=== PATIENT | male | born 1960 | race Caucasian/White ===

== ENCOUNTER → 2020-03-22 10:32 | Outpatient (BNVA) | payer MEDICARE, OTHER, SELFPAY | PROVIDERS: Family Provider Nurse Practitioner; Visit Provider Nurse Practitioner Family | DX: E55.9 Vitamin D deficiency, unspecified (principal); M05.79 Rheumatoid arthritis with rheumatoid factor of multiple sites without organ or systems involvement; Z79.899 Other long term (current) drug therapy; Z12.5 Encounter for screening for malignant neoplasm of prostate; Z13.6 Encounter for screening for cardiovascular disorders | CPT/HCPCS: 80053; 80061; 81003; 82306; 83036; 84443; 85025; G0103 ==

== ENCOUNTER 2021-02-15 16:23 | Inpatient (IN) | payer MEDICARE, OTHER, SELFPAY ==
[2021-02-15] VITALS (18 sets, daily range): BP systolic 102–131; BP diastolic 67–89; PULSE 62–93; RESP 12–22
--- NOTE | 2021-02-15 16:30 | XACV_ITS ---
Ht: 178 cm Wt: 75 kg BSA: 1.93 m2 Gender: Male : 1960 Any Known Allergies: Penicillins Exam Priority: Routine Procedure(s): Procedure Description: Diagnostic procedure Procedure Description: PCI procedure Procedure Description: Drug Eluting Coronary Stent Procedure Description: PTCA Procedure Description: Coronary Angiography Caron TREVINO; Diagnostic Cath Status: Urgent Diagnostic Findings * Left Main has no disease. * Left Anterior Descending has no disease. * Circumflex has no disease. * Proximal Right Coronary Artery to Distal Right Coronary Artery: severe 90% stenosis, NICOLETTE: 2 flow. * Coronary angiography shows right dominance. PCI Indication: STEMI - Immediate PCI for STEMI Interventional Findings * Proximal Right Coronary Artery to Distal Right Coronary Artery: 90% stenosis treated with a AB TREK 2.50X15 RX BALLOON, and MDT R RAVI 3.0X26 RAMESH. 0% residual stenosis, NICOLETTE: 3 flow. * Patient presented with ST elevation SC of right coronary artery, ST elevation was resolved after heparin and nitroglycerin he was taken immediately to the Athletic Equipment Manager. Patient was noted to have thrombotically occluded mid RCA. Flow was present there. It was treated with balloon angioplasty followed by drug-eluting stent. Excellent angiographic result with mormonism of NICOLETTE-3 flow was achieved.. Conclusions 1. There is severe coronary artery disease with one vessel disease. 2. Proximal Right Coronary Artery to Distal Right Coronary Artery was treated with a Balloon, and Drug Eluting Stent. Recommendations * 1-Return to inpatient for close monitoring and routine cath care2-Risk factor modification for secondary prevention3-Statin with LDL goal <70 mg/dl, aspirin 81 mg [id number] was pre-loaded with 180mg of Brillinta. Continue Brillinta 90mg p.o. twice daily for at least one year. We will assess at the end of one year again to continue it further or not5-Continue optimal medical management6-Follow up with Dr. Reardon in four weeks and with your PCP in one week. Diagnostic RX Recommendation: PCI w/o planned CABG Pressures Phase:Rest AO : 105 / 78 ( 92 ) @ 3:52:00 PM 99 / 74 ( 86 ) @ 4:09:00 PM 97 / 80 ( 88 ) @ 4:13:00 PM Clinical Evaluation EBL: 5mL-10mL Procedural Details Current Diagnosis : STEMI. Pre-Procedure Time Out. Identified patient by full name and date of as verbalized by the patient/guarantor. Does the consent match the physician's order: N/A Emergent; Informed Consent not obtained due to time critical life threat. Accurate & Complete Informed Consent: N/A Emergent; Informed Consent not obtained due to time critical life threat. Inpatient/Outpatient History & Physical on Chart: N/A Emergent; Informed Consent not obtained due to time critical life threat. If H&P is completed, is and addenduem needed: N/A Emergent; Informed Consent not obtained due to time critical life threat; If yes, is the addendum complete: N/A Emergent; Informed Consent not obtained due to time critical life threat. Visualize and Verify Site with Patient/Guarantor: N/A. Relevant Radiology Images available: N/A Emergent; Informed Consent not obtained due to time critical life threat. Pre-op teaching completed and patient verbalized understanding. The risks, benefits, and alternatives of sedation and/or procedure were discussed by physician. The patient agrees to continue. Procedure started. Correct patient, site and procedure confirmed by cath team. PERRLA. Strong, equal hand stock checker bilaterally. Lungs clear x 5 lobes. IV Site on Arrival: 18 gauge in the left anticubital. IV Site on Arrival: 18 gauge in the right anticubital. IV Fluids: 0.9% NaCl at KVO. 0 mL infused prior to optical laboratory mechanic. Oxygen started at 3liters/min via nasal canula. right groin was prepped with chloroprep then draped in the usual sterile fashion. right radial was prepped with chloroprep then draped in the usual sterile fashion. Physician notified. Baseline sample Acquired. HR: 93 BPM. Equipment: 6F - Radial. QoL Meds Manifold Kit Model BT 2000. Cardiac Cath Pack. Heparinized Saline (2 units/mL), 1000 mL bag. Physician arrived. Physician scrubbed in. Immediate Pre-Procedure Time Out. Correct Patient: Yes; Correct Procedure: Yes; Correct Site: Yes; Correct Patient Position: Yes; Correct Supplies: Yes; Dried Flammable Prep: Yes; Blood Products Available: No;. AP pads applied to pt. Roxana Medley RN circulate Hernesto Hanna CPT, RT scrub. Lidocaine 1% infiltrated to the right radial. Arterial access obtained. glidewire inserted. 6 lithuanian JR 4 SH guide catheter was inserted over the wire. glidewire out. Multiple views taken of right coronary artery. Inventory is Standard Exchange J-Tip Guidewire .035 260cm. [place] guidewire was advanced through the guide catheter to lesion in the distal RCA. Inflation number : 1 A AB TREK 2.50X15 RX BALLOON was prepped and advanced across the Prox RCA , then inflated to 12 SANDRA for 0:25 seconds. Inflation number: 2 The AB TREK 2.50X15 RX BALLOON was reinflated across the Prox RCA, to 12 SANDRA for 0:15 seconds. Balloon out. Inflation Number : 3 A MDT R RAVI 3.0X26 RAMESH -Lot Number# [id number] exp 10-05-2023 was prepped and advanced across the Prox RCA. The stent was deployed at 12 SANDRA for 0:38 seconds. Results checked. Stent balloon out over wire. Wire out. Guide catheter out. A 5 lithuanian TIG catheter in over wire. Multiple views taken of left coronary artery. Catheter out. A TR Band was successful obtaining hemostatsis at the Right Radial artery insertion site. TR band placed. Hemostasis obtained. PERRLA. Strong, equal hand stock checker bilaterally. No VTE prophylaxis required. Fluoro: 5:10. Contrast type used: Visipaque 320 mgI/mL, 500 mL bottle. [id number]. PCI Indication: STEMI. Complications: none. Estimated blood loss: 5mL-10mL. Procedure completed. Patient transferred by wheelchair to ICU. ACT drawn. Results 376 seconds. Therapeutic limits - pre-heparin administration 90-150 seconds and monitoring heparin during a vascular procedure >250 seconds. Medication's Wasted: Lidocaine 1% = 10 mL. Medication's Wasted: Nitro = 50 mg. Medication's Wasted: Heparin = 1000 units. Medication's Wasted: Other = fentanyl 75 mcg. Medication's Wasted: Other = versed 1 mg. Total IV fluids: 100 mL. Vital chart was stopped. Access Site Site: Right Radial artery Sheath Size: 6 Fr Hemostasis Method: TR Band Hemostasis Success: Successful Procedure Medications Start: 4:41 PM Stop: 4:41 PM Medication: Versed Amount: 1 mg Route: I.V. Start: 4:41 PM Stop: 4:41 PM Medication: Fentanyl Amount: 25 mcg Route: I.V. Start: 4:52 PM Stop: 4:52 PM Medication: Heparin Amount: 4000 units Route: I.V. Start: 5:02 PM Stop: 5:02 PM Medication: Aggrastat 12.5 mg/250 mL Amount: 38 ml Route: I.V. bolus Start: 5:03 PM Stop: 5:03 PM Medication: Aggrastat 12.5 mg/250 mL Amount: 13.7 ml/hr Route: I.V. drip Start: 5:19 PM Stop: 5:19 PM Medication: Brilinta Amount: 180 mg Route: P.O. I, the attending physician, have reviewed and verified all procedure medications. Yes, all medications given per verbal order Report Signatures Finalized by Eliza Reardon MD on 03/03/2021 05:41 PM
--- NOTE | 2021-02-15 16:31 | CTR_ITS ---
PROCEDURE INFORMATION: Exam: CT Head Without Contrast Exam date and time: 02/15/2021 4:31 PM Age: 60 years old Clinical indication: Speech disturbance; Aphasia; Patient HX: Stemi en route post heparin speech difficulty; Additional info: Weakness, can't speak TECHNIQUE: Imaging protocol: Computed tomography of the head without contrast. Radiation optimization: All CT scans at this facility use at least one of these dose optimization techniques: automated exposure control; mA and/or kV adjustment per patient size (includes targeted exams where dose is matched to clinical indication); or iterative reconstruction. Other technique: STROKE PROTOCOL was implemented. COMPARISON: No relevant prior studies available. RADIATION DOSE METRICS: Total DLP (mGy-cm): 1778.76 FINDINGS: Brain: Normal. No hemorrhage. Unremarkable white matter. No mass effect. Cerebral ventricles: No ventriculomegaly. Paranasal sinuses: Visualized sinuses are unremarkable. No fluid levels. Mastoid air cells: Visualized mastoid air cells are well aerated. Bones/joints: Unremarkable. No acute fracture. Soft tissues: Unremarkable. CT/CT head wo con* [id number] IMPRESSION: No acute intracranial abnormality. ASSESSMENT: ASPECTS ([place] Stroke Program Early CT Score) is 10. Radiation Dose CTDIVOL = (mGy): DLP = 1778.76 (mGy-cm)
--- NOTE | 2021-02-15 16:35 | PC.NURSE ---
pt arrived to ER with STEMI and Stroke like symptoms. pt went straight to CT scan and straight to medical lab director. Pt not seen in ER at all.
--- NOTE | 2021-02-15 16:37 | P.HP_ITS ---
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 He called 911. EKG at the baseline was noted to have ST elevation in the inferior leads with reciprocal changes. He was given nitroglycerin which dropped his blood pressure. Due to his slurred speech and suspicion for stroke patient was taken to the CT scanner which ruled out stroke/intracranial bleed. He was then emergently taken to the Research Laboratory Technician on the table patient ST elevation was resolved. He was noted to have thrombotically occluded mid RCA which was treated with balloon angioplasty followed by drug-eluting stent. Excellent angiographic result with NICOLETTE-3 flow was achieved. Patient was loaded with Brilinta aspirin statin and heparin. He was also started on Aggrastat. Patient tolerated procedure well. He is recovering and being transferred to the [facility]. Medications/Allergies Home Medications Medication Instructions Recorded Confirmed Last Taken Type cetirizine 10 mg PO DAILY 02/16/21 02/16/21 Unknown History Allergies Allergy/AdvReac Type Severity Reaction Status Date / Time penicillin G Allergy unknown Verified 12/31/20 08:55 pseudoephedrine Allergy ALGY-Difficulty Verified 12/31/20 08:55 [From Roque] Breathing PFSH Acute PFSH: Medical History Back pain Chronic back pain COPD (chronic obstructive pulmonary disease) DDD (degenerative disc disease), cervical DDD (degenerative disc disease), lumbar DDD (degenerative disc disease), thoracic Environmental and seasonal allergies Hypertension screen Medication management MARIAN (obstructive sleep apnea) Prostate cancer screening Rheumatoid arthritis Trauma of ear canal Vitamin D deficiency Surgical History S/P bilateral inguinal hernia repair 2011 - [facility] S/P cataract surgery Bilateral - 2018 [facility], [place], [place] Status post thoracic spinal fusion 7 fractured vertabra after falling off roof in 2009 Family History Other Cancer Social History Smoking and tobacco status: current every day smoker Alcohol intake: former Physical Exam Narrative: EXAM NARRATIVE: GENERAL: Patient is alert, awake and oriented x3. NECK: No jugular vein distension. HEENT: No cyanosis. No icterus. No pallor. HEART: Regular S1 and S2. No murmur, rub or gallop. LUNGS: Clear to auscultate bilaterally. ABDOMEN: Soft, nontender and nondistended. Positive bowel sounds. No guarding, rebound or tenderness. CENTRAL NERVOUS SYSTEM: Grossly nonfocal. EXTREMITIES: Lower extremities without edema bilaterally. Data : 02/16/21 03:35 02/16/21 03:35 A&P Assessment and plan (1) Myocardial infarction during current hospitalization: Patient required intervention for mid right coronary artery for thrombotic occlusion secondary to acute coronary syndrome. Patient was treated with drug-eluting stent. Left main circumflex and LAD did not have significant stenosis. Advised beta-carley continuing of ticagrelor, continuing statin and 81 mg low-dose aspirin. Patient has been discussed in detail regarding risk benefit for the medicine. Status: Acute (2) Tobacco abuse: Patient has been advised to quit smoking. He said he is going to cry Status: Acute Attestations Medical Necessity Statement*: I am admitting the patient he will be requiring stay for more than 2 midnights Coding Level of Care Code New Pt Acute Gun Synchronizer for Chg Fwd Patient Type New History Comprehensive Exam Comprehensive Medical Decision Making Moderate Complexity Diagnoses Myocardial infarction during current hospitalization I21.9 Tobacco abuse Z72.0
--- NOTE | 2021-02-15 16:55 | W.ED.BURNSMK ---
HPI - Burn/Smoke Inhalation General: Stated complaint: STEMI/STROKE Time Seen by Provider: 02/15/21 16:30 History of Present Illness: HPI Narrative: 60-year-old male transferred in from an outside facility as a STEMI. He did receive heparin at the other facility in route the EMS crew reports he began to have left-sided weakness as well as slurring of his words. Patient previously been treated at outside facility Dr. Reardon had consulted and is being sent here to go to the Steamer Tender for STEMI. When I first encountered the patient he was awake and alert and following all commands he NIH score Associated symptoms: Reports chest pain; Deny fever(s), nausea or vomiting Review of Systems Const: Denies: fever(s), chills, body aches, change in appetite, fatigue or malaise ENMT: Denies: throat pain, ear or mastoid pain, nasal discharge or nasal congestion Card: Reports: chest pain; Denies: edema, dyspnea on exertion or orthopnea Resp: Denies: dyspnea, productive cough or non-productive cough GI: Denies: abdominal pain, nausea, vomiting, hematemesis, coffee ground emesis, diarrhea, constipation, bloating, hematochezia or melena : Denies: flank pain, dysuria, urinary frequency or urinary urgency Skin/Breast: Denies: rash or pruritus PFSH ED PFSH: Medical History Back pain Chronic back pain COPD (chronic obstructive pulmonary disease) DDD (degenerative disc disease), cervical DDD (degenerative disc disease), lumbar DDD (degenerative disc disease), thoracic Environmental and seasonal allergies Hypertension screen Medication management MARIAN (obstructive sleep apnea) Prostate cancer screening Rheumatoid arthritis Trauma of ear canal Vitamin D deficiency Surgical History S/P bilateral inguinal hernia repair 2012 - [facility] S/P cataract surgery Bilateral - 2018 [facility], [place], [place] Status post thoracic spinal fusion 7 fractured vertabra after falling off roof in 2009 Family History Other Cancer Social History Smoking and tobacco status: current every day smoker Alcohol intake: former Physical Exam Const: COMMON NORMALS: no acute distress GENERAL APPEARANCE: cooperative and comfortable ORIENTATION/CONSCIOUSNESS: Yes awake, Yes oriented to person, Yes oriented to place and Yes oriented to time HENMT: COMMON NORMALS: normocephalic, atraumatic and hearing grossly normal bilaterally HEAD & SCALP: normocephalic and atraumatic Neck/C-Spine: COMMON NORMALS: no JVD Resp: COMMON NORMALS: normal respiratory effort, No retractions, No use of accessory muscles and clear to auscultation bilaterally AUSCULTATION: clear to auscultation bilaterally Cardio: COMMON NORMALS: no JVD, regular rate, regular rhythm and No murmurs present (Cardio) RATE: regular rate RHYTHM: regular rhythm GI: COMMON NORMALS: Soft to palpation and No hepatosplenomegaly present AUSCULTATION: Yes normoactive bowel sounds PALPATION: Yes Soft to palpation, No Tenderness to palpation present (GI), No Guarding due to palpation present (GI) and Yes No hepatosplenomegaly present Extremity: COMMON NORMALS: normal to inspection, capillary refill normal, no clubbing, cyanosis or edema, no calf tenderness and no pedal edema Neuro: SENSORIUM/ORIENTATION: Yes oriented to person, Yes oriented to place and Yes oriented to time Skin: COMMON NORMALS: no rashes or lesions noted GENERAL SKIN EXAM: no rashes or lesions noted Course Vital Signs: Vital signs: Vital Signs Temperature 98.3 F 02/16/21 07:14 Pulse Rate 59 L 02/16/21 16:24 Respiratory Rate 20 H 02/16/21 16:24 Blood Pressure 110/71 02/16/21 16:24 Pulse Oximetry 97 02/16/21 16:24 MDM - Burn/Smoke Inhalation MDM Narrative: Medical decision making narrative: Patient arrived and was having right-sided weakness per EMS CT was done read as negative. He went from CT to the Steamer Tender under the care of Dr. Mejias. NIH score in the CT was 0. Discharge Plan Discharge Patient Disposition: Admitted As Inpatient Admit Provider: Eliza Reardon Clinical Impression: ST elevation (STEMI) myocardial infarction Condition: Stable Discharge Diet: Cardiac and Low Salt Discharge Activity: Increase activity as tolerated Coding Level of Care Code ED Relief Master for Martin Schroeder NIH stroke score NIHSS Level Of Consciousness - 1a: 0 Level Of Consciousness Questions - 1b: Both Correct Level Of Consciousness Commands - 1c: Both Correct Best Gaze - 2: Normal Visual Alexandre - 3: No Visual Loss Facial Palsy - 4: Normal Motor Arm Right - 5: No Drift Motor Arm Left - 5: No Drift Motor Leg Right - 6: No Drift Motor Leg Left - 6: No Drift Limb Ataxia - 7: Absent Sensory - 8: Normal Best Language - 9: No Aphasia Dysarthia - 10: Normal Extinction And Inattention - 11: 0 Score Total Score: 0
--- NOTE | 2021-02-15 17:30 | PC.NURSE ---
From ER Received pt from laborer wood preserving plant on aggrastat drip at 13.7 mls/ hr to run until [address] Reardon. Pt is alert, orientedx4. denies any pain or discomfort. TR band intact. no complications. Call light provided. Instructed pt post angiogram activity restrictions.
--- NOTE | 2021-02-15 19:30 | PC.NURSE ---
Aggrastat drip stopped telephone order from cathodic protection technician/dr to stopped aggrastat drip at this time. TR band is intact. no bleeding, hematoma or swelling. radial pulse is palpable. Post angiogram activity restrictions discuss to pt. Instructed pt to notify nurse for any unusual pain, burning, pressure sensation, numbness on right wrist. Pt verbalizes understanding. call light provided.
[2021-02-15 19:52] LABS: Chol HDL Ratio 2.95 mg/dL (1.0-5.00); Cholesterol 130 mg/dL (0-200); HDL Cholesterol 44 mg/dL (60-100); LDL Cholesterol Calculated 74 mg/dL (50-129); LDL HDL Ratio 1.68 RATIO (0.00-3.22); Triglycerides 59 mg/dL (0-150)
[2021-02-15] MEDS: sodium chloride 0.9% 1,000 ML 100 ML IV (20:08)
--- NOTE | 2021-02-15 21:17 | PC.NURSE ---
Shift Note Frequent safety and comfort rounds continue. Orders and/or nursing care completed as indicated. Patient monitored for response to intervention and treatment(s). Education provided includes post angiogram home care instructions especially activity restrictions on right wrist and s/s of heart attack . Patient and/or employment representative verbalizes understanding. Will continue to monitor.
[2021-02-15] MEDS: atorvastatin 40 mg Tablet 80 MG PO (22:09)
[2021-02-16 04:14] LABS: Basophils % 0.1 %; Eosinophils # 0.1 10^3/uL (0.0-0.8); Eosinophils % 0.4 %; Hematocrit 42.8 % (42.0-52.0); Hemoglobin 14.3 g/dL (11.7-16.6); Lymphocytes # 2.7 10^3/uL (0.8-4.8); Lymphocytes % 19.4 %; Mean Corpuscular HGB Conc 33.4 g/dL (30.0-36.0); Mean Corpuscular Hemoglobin 32.8 pg (28.0-34.0); Mean Corpuscular Volume 98.2 fl (80-94); Monocytes % 7.1 %; Neutrophils # 9.89 10^3/uL (1.8-7.7); Neutrophils % 71.8 %; Nucleated Red Blood Cells % 0 %; Platelet Count 297 10^3/cmm (130-400); Red Blood Count 4.36 10^6/uL (4.1-5.3); Red Cell Distribution Width 14.4 % (12.1-15.1); White Blood Count 13.8 10^3/uL (4.0-10.0)
[2021-02-16 04:30] LABS: Anion Gap 12.8 (5-19); Blood Urea Nitrogen 10 mg/dL (8-23); Calcium 8.5 mg/dL (8.5-10.5); Carbon Dioxide 24 mmol/L (22-29); Chloride 107 mmol/L (98-107); Glomerular Filtration Rate 137.4 mL/min (90-130); Glucose 98 mg/dL (65-115); Osmolality Calculated 289 mOsm/kg (285-295); Potassium 3.8 mmol/L (3.5-5.1); Sodium 140 mmol/L (136-145)
[2021-02-16 05:42] VITALS: PULSE 57
[2021-02-16 07:14] VITALS: BP 116/69; PULSE 59; RESP 22; TEMP 36.8; O2SAT 95
[2021-02-16] MEDS: aspirin 81 mg EC Tablet PO (08:49)
[2021-02-16] MEDS: ticagrelor 90 mg Tablet PO (08:49)
--- NOTE | 2021-02-16 10:36 | PC.NURSE ---
Noted run of josephine whitehead on unit notified instructions received to start patient on metoprolol 12.5 po q12H monitor patients response to therapy
[2021-02-16] MEDS: metoprolol tartrate 25 mg Tablet 12.5 MG PO (10:58)
[2021-02-16 11:00] VITALS: BP 110/71; PULSE 59; RESP 20; O2SAT 97
--- NOTE | 2021-02-16 13:44 | ECG_ITS ---
[facility] Test Date: 2021-02-16 Pat Name: Prabhu Romeo Department: Room: 107 Gender: Male Imaging Tech: : [id number] Requested By: Eliza Reardon Order Number: [id number] Reading MD: ELIZA REARDON Measurements Intervals [place] Rate: 58 P: 53 OK: 153 QRS: -53 QRSD: 97 T: -73 QT: 469 QTc: 464 Interpretive Statements SINUS BRADYCARDIA LEFT ANTERIOR FASCICULAR BLOCK [QRS AXIS <= -45, QR IN I, RS IN II] INFERIOR MYOCARDIAL INFARCTION , OF INDETERMINATE AGE [40+ ms Q WAVE AND/OR ST/T ABNORMALITY IN II/aVF] MODERATE T-WAVE ABNORMALITY, CONSIDER LATERAL ISCHEMIA [-0.1+ mV T-WAVE IN I/aVL/V5/V6] No previous ECG available for comparison Electronically Signed On 02-16-2021 18:24:10 CDT by ELIZA REARDON [email or web address]
[2021-02-16] MEDS: potassium chloride ER 20 mEq Tablet PO (13:56)
[2021-02-16] MEDS: FUROsemide 10 mg/mL SDV 4mL 40 MG IVP (13:56)
--- NOTE | 2021-02-16 15:26 | PM.PN ---
Subjective Subjective: Interval history: No overnight event this morning patient is complaining of slight shortness of breath echocardiogram suggestive of moderately reduced ejection fraction 45%. Patient had also nonsustained short run of ventricular tachycardia. Vitals/I&O/Wt Last Vital Signs Temp 98.3 F 02/16/21 07:14 Pulse 59 L 02/16/21 11:00 Resp 20 H 02/16/21 11:00 BP 110/71 02/16/21 11:00 Pulse Ox 97 02/16/21 11:00 02/16/21 02/16/21 02/16/21 06:59 14:59 22:59 Intake Total 1000 / 1360 220 / 220 Output Total 1100 / 1400 900 / 900 Balance -100 / -40 220 / 220 -900 / -680 Physical Exam Narrative: EXAM NARRATIVE: GENERAL: Patient is alert, awake and oriented x3. NECK: No jugular vein distension. HEENT: No cyanosis. No icterus. No pallor. HEART: Regular S1 and S2. No murmur, rub or gallop. LUNGS: Clear to auscultate bilaterally. ABDOMEN: Soft, nontender and nondistended. Positive bowel sounds. No guarding, rebound or tenderness. CENTRAL NERVOUS SYSTEM: Grossly nonfocal. EXTREMITIES: Lower extremities without edema bilaterally. Data : 02/16/21 03:35 02/16/21 03:35 A&P Assessment and plan (1) Myocardial infarction during current hospitalization: Patient required intervention for mid right coronary artery for thrombotic occlusion secondary to acute coronary syndrome. Patient was treated with drug-eluting stent. Left main circumflex and LAD did not have significant stenosis. Advised beta-carley continuing of ticagrelor, continuing statin and 81 mg low-dose aspirin. Patient has been discussed in detail regarding risk benefit for the medicine. On today's visit patient is complaining of some shortness of breath he has new onset of congestive heart failure systolic type I will diurese him. Overall he is doing fine from a coronary artery disease perspective continue current regimen as above we will cautiously watch beta-carley as he is in general bradycardic Status: Acute (2) Tobacco abuse: Patient has been advised to quit smoking. He said he is going to cry Status: Acute (3) CHF (congestive heart failure), NYHA class I: Patient had new onset of systolic heart failure ejection fraction around 45% which is moderately reduced. Will add DERIC inhibitor to the regimen. Patient is complaining some shortness of breath will give him IV Lasix. Status: Acute Attestations Medical Necessity Statement*: Patient require continuation hospitalization for above defined care. Coding Level of Care Code New Pt Acute Patent Leather Sorter for Martin Schroeder Patient Type New History Comprehensive Exam Comprehensive Medical Decision Making Moderate Complexity Diagnoses Myocardial infarction during current hospitalization I21.9 Tobacco abuse Z72.0 CHF (congestive heart failure), NYHA class I I50.9
--- NOTE | 2021-02-16 15:39 | PM.DCS ---
Discharge Providers Date of Admission: 02/15/21 18:40 Date of Discharge: February 16, 2021 Attending Provider at Admission: Eliza Reardon MD Attending Provider at Discharge: Eliza Reardon MD Primary Care Provider: BEST Maya Diagnoses at Discharge Discharge Diagnosis (1) Myocardial infarction during current hospitalization: Status: Acute (2) Tobacco abuse: Status: Acute (3) CHF (congestive heart failure), NYHA class I: Status: Acute Reason for Visit Reason for Visit: STEMI/STROKE Hospital Course Hospital Course 60-year-old male past medical history significant for tobacco abuse however done in CI to mid RCA for ST elevation NM. Postop care remains uncomplicated he was noted to have moderately depressed LV function of 40%. He was started on beta-carley and DERIC inhibitor aspirin and ticagrelor. He was advised regarding continuing antiplatelet without any interruption for at least 1 year. Patient understood and agreed to it. He was advised to quit smoking which he has not promised me. He was also started on high-dose statin. He will be followed up in cardiology clinic with our cardiology nurse practitioner Ms. Marie Lynch. I will see patient in 4 to 6 weeks. Physical Exam Narrative: EXAM NARRATIVE: GENERAL: Patient is alert, awake and oriented x3. NECK: No jugular vein distension. HEENT: No cyanosis. No icterus. No pallor. HEART: Regular S1 and S2. No murmur, rub or gallop. LUNGS: Clear to auscultate bilaterally. ABDOMEN: Soft, nontender and nondistended. Positive bowel sounds. No guarding, rebound or tenderness. CENTRAL NERVOUS SYSTEM: Grossly nonfocal. EXTREMITIES: Lower extremities without edema bilaterally. Discharge Data Data Completed and Pending: Completed Studies During Hospitalization Category Date Time Status CT head wo con* [id number] Stat Cat Scan 02/15/21 16:31 Completed CV. echo complete * [id number] Routine Ultrasound 02/16/21 18:01 Completed Pending at discharge Category Date Time Status MEETING PLANNER request for service Stat Exams 02/15/21 16:30 Ordered Labs from last 24 hours 02/16/21 02/16/21 02/15/21 03:35 03:35 19:25 WBC 13.8 H RBC 4.36 Hgb 14.3 Hct 42.8 MCV 98.2 H MCH 32.8 MCHC 33.4 RDW 14.4 Plt Count 297 MPV 10.0 Neut % (Auto) 71.8 Lymph % (Auto) 19.4 [place] % (Auto) 7.1 Eos % (Auto) 0.4 Baso % (Auto) 0.1 Neut # (Auto) 9.89 H Lymph # (Auto) 2.7 [place] # (Auto) 1.0 H Eos # (Auto) 0.1 Baso # (Auto) 0.0 Nucleated RBC % (a uto) 0 Nucleated RBCs # 0.0 Sodium 140 Potassium 3.8 Chloride 107 Carbon Dioxide 24 Anion Gap 12.8 BUN 10 Creatinine 0.6 L GFR Calculation 137.4 H Glucose 98 Calculated Osmolal ity 289 Calcium 8.5 Triglycerides 59 Cholesterol 130 LDL Cholesterol, C alc 74 HDL Cholesterol 44 L LDL/HDL Ratio 1.68 Cholesterol/HDL Ra jsoe 2.95 Vitals: Last Vital Signs Temp 98.3 F 02/16/21 07:14 Pulse 59 L 02/16/21 11:00 Resp 20 H 02/16/21 11:00 BP 110/71 02/16/21 11:00 Pulse Ox 97 02/16/21 11:00 Discharge Plan Discharge Patient Disposition: Home Condition: Stable Prescriptions: New atorvastatin 40 mg Tablet 80 mg PO BEDTIME Qty: 30 RF: 4 aspirin 81 mg Tablet,Delayed Release (Dr/Ec) 81 mg PO DAILY Qty: 180 RF: 3 lisinopril 2.5 mg Tablet 2.5 mg PO DAILY Qty: 30 RF: 4 pantoprazole [Protonix] 40 mg tablet,delayed release (DR/EC) 40 mg PO DAILY Qty: 90 RF: 4 Brilinta 90 mg Tablet 90 mg PO BID Qty: 90 RF: 4 metoprolol succinate 25 mg tablet extended release 24 hr 12.5 mg PO DAILY Qty: 30 RF: 4 Continued cetirizine 10 mg Tablet 10 mg PO DAILY RF: 0 Discharge Orders: Discharge Order (Routine); Ordered 02/16/21 Ordered By: Eliza Reardon Referrals: MAR Padilla FNP [Primary Care Provider] - Eliza Reardon MD [Physician] - Marie Lynch FNP [Nurse Practitioner] - Discharge Diet: Cardiac and Low Salt Discharge Activity: Increase activity as tolerated Patient Instructions: Opioid Safety Activity Restrictions/Additional Instructions: Follow-up with Marie Lynch cardiology nurse practitioner in 7 to 10 days. Follow-up with Dr. Reardon in 6 to 8 weeks. Discharge Attestations Time Spent in Discharge Care*: greater than 30 min Specific Discharge Activities: educating patient Quality Metrics Clinical Quality Measures During this hospital stay, did patient experience: AMI Clinical Trial Participant: No Contraindication to aspirin (AMI): Aspirin given Contraindication to statin: Statin prescribed Contraindication to PCI: PCI performed Coding Level of Care Code New Pt Acute Chg FW DC note Patient Type New History Detailed Exam Detailed Medical Decision Making Moderate Complexity Diagnoses Myocardial infarction during current hospitalization I21.9 Tobacco abuse Z72.0 CHF (congestive heart failure), NYHA class I I50.9
[2021-02-16 16:24] VITALS: BP 110/71; PULSE 59; RESP 20; O2SAT 97
--- NOTE | 2021-02-16 17:31 | PC.NURSE ---
discharge instructions given and explained.pt verb understanding of instructions.discharged at this time.spouse to drive pt home
--- NOTE | 2021-02-16 18:01 | USCV_ITS ---
Prabhu Romeo Age: 60 Gender: M : 1960 Exam Date: 02/16/2021 06:41 Ordering Phys: Eliza Reardon MD ([email or web address]) Technologist: Rula Jaquez Exam Location: [facility] – [place] Indication: STEMI BP: / HR: 53 Rhythm: Sinus Technical Quality: Adequate MEASUREMENTS (Male / Female) Normal Values 2D ECHO LV Diastolic Diameter PLAX 4.3 cm 4.2 - 5.9 / 3.9 - 5.3 cm LV Systolic Diameter PLAX 3.3 cm LV Chamber Size 4.5 cm IVS Diastolic Thickness 2.0 cm 0.6 - 1.0 / 0.6 - 0.9 cm IVS Systolic Thickness 2.2 cm LVPW Diastolic Thickness 1.0 cm 0.6 - 1.0 / 0.6 - 0.9 cm LVPW Systolic Thickness 1.0 cm RV Chamber Size 2.9 cm LVOT Diameter 1.9 cm LV Ejection Fraction 2D Teich 47.1 % LV Ejection Fraction MOD 2C 49.8 % LV Ejection Fraction 2C AL 50.2 % LA Diameter 2.5 cm LA Width 3.2 cm LA Height 5.1 cm RA Width 2.4 cm RA Height 3.8 cm Aorta at Sinotubular Diameter 2.8 cm M-MODE LV Diastolic Diameter MM 5.8 cm 4.2 - 5.9 / 3.9 - 5.3 cm LV Systolic Diameter MM 4.6 cm LV Ejection Fraction MM Teich 40.4 % IVS Diastolic Thickness MM 1.3 cm 0.6 - 1.0 / 0.6 - 0.9 cm IVS Systolic Thickness MM 1.5 cm LVPW Diastolic Thickness MM 1.3 cm 0.6 - 1.0 / 0.6 - 0.9 cm LVPW Systolic Thickness MM 1.2 cm Aortic Annulus Diameter 3.1 cm LA Ao Ratio MM 0.9 MV E Point Septal Separation 1.4 cm DOPPLER AV Peak Velocity 130.0 cm/s LVOT Peak Velocity 101.0 cm/s AV Area Cont Eq vti 2.1 cm squared AV Area Cont Eq pk 2.2 cm squared MV Area PHT 3.9 cm squared Mitral E to A Ratio 1.1 MV E' Velocity 47.0 cm/s Mitral E to MV E' Ratio 9.5 Mitral E to LV E' Lateral Ratio 7.5 Mitral E to LV E' Septal Ratio 13.4 TV Peak E Velocity 59.0 cm/s Right Atrial Pressure 3.0 mmHg FINDINGS Left Ventricle Normal left ventricular cavity size. Moderately decreased left ventricular systolic function. Global left ventricular hypokinesis. Left ventricular ejection fraction is estimated at 45 %. Grade II/IV diastolic dysfunction, moderately elevated filling pressures. Right Ventricle The right ventricle is normal in size and function. RVSP could not be calculated due to incomplete tricuspid regurgitation velocity profile. Right Atrium The right atrium is normal in size. Left Atrium The left atrium is normal in size. Mitral Valve Structurally normal mitral valve without significant stenosis or prolapse. There is no mitral regurgitation. Aortic Valve Moderate aortic valve calcification. No aortic valve stenosis. No aortic valve regurgitation. Tricuspid Valve Mild tricuspid valve regurgitation. Pulmonic Valve Structurally normal pulmonic valve without significant stenosis. There is no pulmonic regurgitation. Pericardium Normal pericardium without effusion. Aorta Normal ascending aorta dimension. CONCLUSIONS 1-Normal left ventricular cavity size. Moderately decreased left ventricular systolic function. Global left ventricular hypokinesis. Left ventricular ejection fraction is estimated at 45 %. Grade II/IV diastolic dysfunction, moderately elevated filling pressures. 2-The right ventricle is normal in size and function. RVSP could not be calculated due to incomplete tricuspid regurgitation velocity profile. 3-Moderate aortic valve calcification. No aortic valve stenosis. No aortic valve regurgitation. 4-Structurally normal mitral valve without significant stenosis or prolapse. There is no mitral regurgitation. 6-There is no pericardial effusion. 7-Right atrial pressure is around 18-5 mm of mercury. 8-There are no prior echocardiogram studies to compare. Eliza Reardon MD (Electronically Signed) Final Date: 16 February 2021 13:25 S
--- NOTE | 2021-02-18 15:15 | PC.RESP ---
sent smoking cessation and pulmonary rehab information
--- NOTE | 2021-02-18 19:23 | PC.SOCIAL ---
discharge follow up call made, spoke with patient. patient reports slight chest pain, but very little. patient picked up all medications from the pharmacy and he is taking as prescribed. patient is aware of follow up appointment dates and times. patient denies any questions or concerns.
== END 2021-02-16 16:30 | disposition home or self-care (01) | DRG 246 ==
LOC: ER 16:34 → CCL 16:36 → CSU 18:40
PROVIDERS: Admitting Provider Internal Medicine Cardiovascular Disease; Emergency Provider Family Medicine; PCP Nurse Practitioner Family; Visit Provider Internal Medicine Cardiovascular Disease
PROC: 027034Z Dilation of Coronary Artery, One Artery with Drug-eluting Intraluminal Device, Percutaneous Approach (ICD-10-PCS; principal; 2021-02-15 16:30)
PROC: 027034Z Dilation of Coronary Artery, One Artery with Drug-eluting Intraluminal Device, Percutaneous Approach (ICD-10-PCS; 2021-02-15 16:30)
DX: I21.11 ST elevation (STEMI) myocardial infarction involving right coronary artery (principal); I50.21 Acute systolic (congestive) heart failure; F17.210 Nicotine dependence, cigarettes, uncomplicated; G47.33 Obstructive sleep apnea (adult) (pediatric); G89.29 Other chronic pain; J44.9 Chronic obstructive pulmonary disease, unspecified; M50.30 Other cervical disc degeneration, unspecified cervical region; M51.34 Other intervertebral disc degeneration, thoracic region; M51.36 Other intervertebral disc degeneration, lumbar region; M06.9 Rheumatoid arthritis, unspecified
CPT/HCPCS: 36415; 70450; 80048; 80061; 85025; 85347; 93005; 93306; 93454; 99285; C1725; C1769; C1874; C1887; C1894; C9600; J1644; J1940; J2250; J3010; J3246; J3490; J7030; Q9967

== ENCOUNTER → 2021-02-25 15:35 | Outpatient (BNVA) | payer MEDICARE, OTHER, SELFPAY | PROVIDERS: PCP Nurse Practitioner Family; Visit Provider Nurse Practitioner Family | DX: Z09 Encounter for follow-up examination after completed treatment for conditions other than malignant neoplasm (principal); I21.3 ST elevation (STEMI) myocardial infarction of unspecified site | CPT/HCPCS: 80048 ==

== ENCOUNTER 2021-05-15 12:30 | Emergency (ER) | payer MEDICARE, OTHER, SELFPAY ==
--- NOTE | 2021-05-15 12:35 | XR_ITS ---
WS: [id number] Portable AP upright chest, 05/15/2021 Clinical Data: chest pain Comparison: PA and lateral chest, 08/26/2010. Findings: No nodules, masses or effusions are seen. The heart is normal. The pulmonary vascularity is not increased. No pneumonia or pneumothorax is seen. The patient has had a posterior thoracic fusion with bilateral pedicle screws and connecting rods. XR/XR chest 1V portable [id number] Impression: Negative chest.
--- NOTE | 2021-05-15 12:36 | ECG_ITS ---
[facility] Test Date: 2021-05-15 Pat Name: Prabhu Romeo Department: Room: Gender: Male Line Up Examiner: : 1960 Requested By: Surekha Gagnon Order Number: [id number] Brent MD: Teagan Walton M.D. Measurements Intervals [place] Rate: 50 P: 63 AL: 155 QRS: -20 QRSD: 97 T: 20 QT: 434 QTc: 399 Interpretive Statements SINUS BRADYCARDIA POSSIBLE RIGHT VENTRICULAR CONDUCTION DELAY [RSR (QR) IN V1/V2] Compared to ECG 05/15/2021 12:36:26 Sinus rhythm no longer present Electronically Signed On 05-15-2021 20:45:41 DIRECTOR OF CONSULTING SERVICES by Teagan Walton M.D. [email or web address] medical [email or web address] - Track Court Cases [facility].Mobui/store/OM/[id number]
[2021-05-15 12:38] VITALS: BP 154/89; PULSE 74; RESP 22; TEMP 37.1; O2SAT 99; BMI 22.6
[2021-05-15 12:41] VITALS: BP 149/87; PULSE 67; RESP 16; O2SAT 97
[2021-05-15 12:58] VITALS: BP 150/110; PULSE 58; RESP 20; O2SAT 96
[2021-05-15 13:01] LABS: Basophils % 0.4 %; Eosinophils # 0.1 10^3/uL (0.0-0.8); Eosinophils % 0.6 %; Hematocrit 46.8 % (42.0-52.0); Hemoglobin 15.7 g/dL (11.7-16.6); Lymphocytes # 2.2 10^3/uL (0.8-4.8); Lymphocytes % 23.6 %; Mean Corpuscular HGB Conc 33.5 g/dL (30.0-36.0); Mean Corpuscular Hemoglobin 32.6 pg (28.0-34.0); Mean Corpuscular Volume 97.1 fl (80-94); Mean Platelet Volume 9.5 fL (7.4-10.4); Monocytes # 0.5 10^3/uL (0.2-0.9); Monocytes % 5.1 %; Neutrophils # 6.41 10^3/uL (1.8-7.7); Neutrophils % 69.1 %; Nucleated Red Blood Cells % 0 %; Platelet Count 304 10^3/cmm (130-400); Red Blood Count 4.82 10^6/uL (4.1-5.3); Red Cell Distribution Width 14.5 % (12.1-15.1); White Blood Count 9.3 10^3/uL (4.0-10.0)
[2021-05-15] MEDS: nitroglycerin 0.4 mg sublingual Tablet SUBLINGUAL (13:10)
[2021-05-15 13:23] LABS: Alanine Aminotransferase 16 U/L (0-41); Albumin Level 4.4 g/dL (3.5-5.2); Alkaline Phosphatase 85 IU/L (40-130); Anion Gap 14.4 (5-19); Aspartate Amino Transferase 12 U/L (0-40); Blood Urea Nitrogen 10 mg/dL (8-23); Calcium 8.9 mg/dL (8.5-10.5); Carbon Dioxide 27 mmol/L (22-29); Chloride 100 mmol/L (98-107); Globulin 2.9 g/dL (1.3-4.6); Glomerular Filtration Rate 98.3 mL/min (90-130); Glucose 85 mg/dL (65-115); Osmolality Calculated 282 mOsm/kg (285-295); Potassium 4.4 mmol/L (3.5-5.1); Sodium 137 mmol/L (136-145); Total Bilirubin 0.7 mg/dL (0.15-1.2); Total Protein 7.3 g/dL (6.6-8.7)
[2021-05-15 13:24] LABS: Troponin(5th) Baseline 11 ng/L (0-15)
--- NOTE | 2021-05-15 13:39 | W.ED.CHESTPA ---
HPI - Chest Pain General: Chief Complaint: Chest Pain Stated Complaint: chest tightness, sob, stents placed couple months Time Seen by Provider: 05/15/21 12:55 History of Present Illness: HPI narrative: Patient comes in complaining of chest pain which he describes as in the back, squeezing, last for minutes at a time, started a couple of days ago, off and on. States he recently had similar symptoms a couple of months ago and had a stent placed. States that he was switched from the Brilinta to the Plavix 1 month ago. He denies any cold symptoms including no fever, cough, congestion. Associated symptoms: Reports dyspnea; Deny abdominal pain, fever(s), nausea, palpitations or vomiting Review of Systems Const: Denies: fever(s) or body aches Eyes: Denies: change in vision or blurry vision ENMT: Denies: throat pain or odynophagia Card: Reports: chest pain; Denies: palpitations Resp: Reports: dyspnea; Denies: productive cough GI: Denies: abdominal pain, nausea or vomiting : Denies: flank pain or dysuria Musc: Denies: neck pain or back pain Skin/Breast: Denies: rash or pruritus Neuro: Denies: headache(s) or numbness in extremities Psych: Denies: anxiety or change in appetite Endo: Denies: polyuria or excessive sweating PFSH ED PFSH: Medical History Back pain CAD (coronary artery disease) Chronic back pain COPD (chronic obstructive pulmonary disease) DDD (degenerative disc disease), cervical DDD (degenerative disc disease), lumbar DDD (degenerative disc disease), thoracic Environmental and seasonal allergies Hypertension screen Medication management MARIAN (obstructive sleep apnea) Prostate cancer screening Rheumatoid arthritis Trauma of ear canal Vitamin D deficiency Surgical History S[place] bilateral [place] [facility] [place] Bilateral - 2018 [facility] [place], [place] S/P drug eluting coronary stent placement Status post thoracic spinal fusion 7 fractured vertabra after falling off roof in 2009 Family History Other Cancer Social History Alcohol intake: former Physical Exam Const: COMMON NORMALS: no acute distress, patient oriented x3, healthy appearing and alert HENMT: COMMON NORMALS: normocephalic and atraumatic HEAD & SCALP: normocephalic and atraumatic Eye: COMMON NORMALS: Equal, round and reactive pupils present and EOMs intact bilaterally PUPIL: Yes Equal, round and reactive pupils present Neck/C-Spine: COMMON NORMALS: full ROM and supple Resp: COMMON NORMALS: normal respiratory effort, No retractions and No use of accessory muscles Cardio: COMMON NORMALS: regular rate and regular rhythm RATE: regular rate RHYTHM: regular rhythm GI: COMMON NORMALS: Normal to inspection, nondistended, normoactive bowel sounds present, Soft to palpation and non-tender PALPATION: Yes Soft to palpation Back/Pelvis: COMMON NORMALS: thoracic and lumbar spine normal to inspection and no thoracic nor lumbar tenderness Extremity: COMMON NORMALS: normal to inspection and full ROM Neuro: COMMON NORMALS: patient oriented x3 SENSORIUM/ORIENTATION: Yes alert Psych: COMMON NORMALS: mental status grossly normal and cooperative Skin: COMMON NORMALS: no rashes or lesions noted and no wounds GENERAL SKIN EXAM: no rashes or lesions noted Course ED course: Patient comes in complaining of chest pain which he describes as in the back, squeezing, last for minutes at a time, started a couple of days ago, off and on. States he recently had similar symptoms a couple of months ago and had a stent placed. States that he was switched from the Brilinta to the Plavix 1 month ago. He has not missed any of his medications. Physical exam is unremarkable. He already took a full aspirin today. Will give nitro, check labs, EKG, x-ray, and reassess. Reevaluation(s): Reevaluation #1: On reassessment I talked to the patient about the test results. His troponin is within normal limits at baseline and at 2 hours. We talked him at length about symptoms that should prompt immediate return to the emergency department. Will discharge at this time. Vital Signs: Vital signs: Vital Signs Temperature 98.8 F 05/15/21 12:38 Pulse Rate 53 L 05/15/21 13:58 Respiratory Rate 20 H 05/15/21 13:58 Blood Pressure 102/67 05/15/21 13:58 Pulse Oximetry 95 05/15/21 13:58 MDM - Chest Pain Lab Data: Labs: Lab Results 05/15/21 05/15/21 05/15/21 12:54 12:54 12:54 WBC 9.3 10^3/uL 10^3/ uL (4.0-10.0) RBC 4.82 10^6/uL 10^6 /uL (4.1-5.3) Hgb 15.7 g/dL g/dL (11.7-16.6) Hct 46.8 % % (42.0-52.0) MCV 97.1 fl H fl (80-94) MCH 32.6 pg pg (28.0-34.0) MCHC 33.5 g/dL g/dL (30.0-36.0) RDW 14.5 % % (12.1-15.1) Plt Count 304 10^3/cmm 10^3 /cmm (130-400) MPV 9.5 fL fL (7.4-10.4) Neut % (Auto) 69.1 % % Lymph % (Auto) 23.6 % % [place] % (Auto) 5.1 % % Eos % (Auto) 0.6 % % Baso % (Auto) 0.4 % % Neut # (Auto) 6.41 10^3/uL 10^3 /uL (1.8-7.7) Lymph # (Auto) 2.2 10^3/uL 10^3/ uL (0.8-4.8) [place] # (Auto) 0.5 10^3/uL 10^3/ uL (0.2-0.9) Eos # (Auto) 0.1 10^3/uL 10^3/ uL (0.0-0.8) Baso # (Auto) 0.0 10^3/uL 10^3/ uL (0.0-0.1) Nucleated RBC % (a uto) 0 % % Nucleated RBCs # 0.0 /100WBC /100W BC Sodium 137 mmol/L mmol/L (136-145) Potassium 4.4 mmol/L mmol/L (3.5-5.1) Chloride 100 mmol/L mmol/L (98-107) Carbon Dioxide 27 mmol/L mmol/L (22-29) Anion Gap 14.4 (5-19) BUN 10 mg/dL mg/dL (8-23) Creatinine 0.8 mg/dL mg/dL (0.7-1.2) GFR Calculation 98.3 mL/min mL/mi n (90-130) Glucose 85 mg/dL mg/dL (65-115) Calculated Osmolal ity 282 mOsm/kg L mOs m/kg (285-295) Calcium 8.9 mg/dL mg/dL (8.5-10.5) Total Bilirubin 0.7 mg/dL mg/dL (0.15-1.2) AST 12 U/L U/L (0-40) ALT 16 U/L U/L (0-41) Alkaline Phosphata se 85 IU/L IU/L (40-130) Troponin T Baselin e 11 ng/L ng/L (0-15) Troponin T 120 Min [place] Delta Troponin T Total Protein 7.3 g/dL g/dL (6.6-8.7) Albumin 4.4 g/dL g/dL (3.5-5.2) Globulin 2.9 g/dL g/dL (1.3-4.6) 05/15/21 14:58 WBC RBC Hgb Hct MCV MCH MCHC RDW Plt Count MPV Neut % (Auto) Lymph % (Auto) [place] % (Auto) Eos % (Auto) Baso % (Auto) Neut # (Auto) Lymph # (Auto) [place] # (Auto) Eos # (Auto) Baso # (Auto) Nucleated RBC % (a uto) Nucleated RBCs # Sodium Potassium Chloride Carbon Dioxide Anion Gap BUN Creatinine GFR Calculation Glucose Calculated Osmolal ity Calcium Total Bilirubin AST ALT Alkaline Phosphata se Troponin T Baselin e Troponin T 120 Min [place] 11.18 ng/L ng/L (0-15) Delta Troponin T 0.18 ABS# ABS# (0-10) Total Protein Albumin Globulin Discharge Plan Discharge Patient Disposition: Home Clinical Impression: Chest pain Qualifiers: Chest pain type: unspecified Qualified Code(s): R07.9 - Chest pain, unspecified Condition: Stable Prescriptions: No Action clopidogrel 300 mg tablet 600 mg PO ONCE Qty: 2 RF: 0 clopidogrel 75 mg tablet 75 mg PO DAILY Qty: 90 RF: 3 triamcinolone acetonide 40 mg/mL suspension 40 mg IM ONCE Qty: 1 RF: 0 atorvastatin 80 mg tablet 80 mg PO BEDTIME Qty: 90 RF: 3 aspirin 81 mg Tablet,Delayed Release (Dr/Ec) 81 mg PO DAILY Qty: 180 RF: 3 lisinopril 2.5 mg Tablet 2.5 mg PO DAILY Qty: 30 RF: 4 Protonix 40 mg tablet,delayed release (DR/EC) 40 mg PO DAILY Qty: 90 RF: 4 metoprolol succinate 25 mg tablet extended release 24 hr 12.5 mg PO DAILY Qty: 30 RF: 4 cetirizine 10 mg tablet 10 mg PO DAILY PRN (Reason: allergy symptoms) RF: 0 Discharge Orders: Discharge ED (Routine); Ordered 05/15/21 Ordered By: Wily Abbott Referrals: MAR Padilla, CERTIFIED ALCOHOL DRUG COUNSELOR [Primary Care Provider] - Coding Level of Care Code ED Claim Processing Specialist for Pattieg Fwd Exam Comprehensive
[2021-05-15 13:58] VITALS: BP 102/67; PULSE 53; RESP 20; O2SAT 95
--- NOTE | 2021-05-15 14:36 | ECG_ITS ---
[facility] Test Date: 2021-05-15 Pat Name: Prabhu Romeo Department: Room: Gender: Male Feed Adviser: : 1960 Requested By: Surekha Gagnon Order Number: [id number] Brent MD: Teagan Walton M.D. Measurements Intervals [place] Rate: 62 P: 63 [place]: 149 QRS: -6 QRSD: 98 T: 58 QT: 393 QTc: 399 Interpretive Statements SINUS RHYTHM POSSIBLE LEFT ATRIAL ENLARGEMENT [-0.1mV P-WAVE IN V1/V2] POSSIBLE RIGHT VENTRICULAR CONDUCTION DELAY [RSR (QR) IN V1/V2] Compared to ECG 02/16/2021 13:52:41 Sinus bradycardia no longer present Left anterior fascicular block no longer present Myocardial infarct finding no longer present T-wave abnormality no longer present Possible ischemia no longer present Electronically Signed On 05-15-2021 20:48:32 INTERVENTION MANAGER by Teagan Walton M.D. [email or web address] [email or web address] Press/store/[id number]
[2021-05-15 15:30] LABS: Troponin 5 2HR 11.18 ng/L (0-15); Troponin 5 2HR Delta 0.18 ABS# (0-10)
[2021-05-15 16:06] VITALS: BP 118/88; PULSE 58; RESP 17; O2SAT 97
== END 2021-05-15 16:08 | disposition home or self-care (01) ==
PROVIDERS: Physician Assistant; Emergency Provider Emergency Medicine; PCP Nurse Practitioner Family
DX: R07.9 Chest pain, unspecified (principal); Z79.02 Long term (current) use of antithrombotics/antiplatelets; Z79.82 Long term (current) use of aspirin; I25.10 Atherosclerotic heart disease of native coronary artery without angina pectoris; J44.9 Chronic obstructive pulmonary disease, unspecified
CPT/HCPCS: 36415; 71045; 80053; 84484; 85025; 93005; 99284

== ENCOUNTER → 2022-04-14 10:24 | Outpatient (BNVA) | payer MEDICARE, OTHER, SELFPAY | PROVIDERS: Visit Provider Nurse Practitioner | DX: R06.02 Shortness of breath (principal) | CPT/HCPCS: 71046; 80053; 83880; 85025 ==

== ENCOUNTER → 2022-04-17 13:49 | Outpatient (BNVA) | payer MEDICARE, OTHER, SELFPAY | PROVIDERS: PCP Nurse Practitioner; Visit Provider Internal Medicine Cardiovascular Disease | DX: I25.10 Atherosclerotic heart disease of native coronary artery without angina pectoris (principal); I11.0 Hypertensive heart disease with heart failure; I50.9 Heart failure, unspecified; F17.200 Nicotine dependence, unspecified, uncomplicated; J44.9 Chronic obstructive pulmonary disease, unspecified; G47.33 Obstructive sleep apnea (adult) (pediatric); M05.79 Rheumatoid arthritis with rheumatoid factor of multiple sites without organ or systems involvement | CPT/HCPCS: 93005; 99214 ==

== ENCOUNTER 2022-05-07 14:10 | Outpatient (CLI) | payer MEDICARE, OTHER, SELFPAY ==
--- NOTE | 2022-05-07 14:30 | USCV_ITS ---
Prabhu Romeo Age: 62 Gender: M : 1960 Exam Date: 05/07/2022 14:37 Ordering Phys: Bobbi Prescott MD ([email or web address]) Technologist: Lanette Rajput Exam Location: [facility] – [place] Indication: ASHD, CAD BP: / HR: 58 Rhythm: Sinus Technical Quality: Good MEASUREMENTS (Male / Female) Normal Values 2D ECHO LV Diastolic Diameter PLAX 5.3 cm 4.2 - 5.9 / 3.9 - 5.3 cm LV Systolic Diameter PLAX 3.5 cm IVS Diastolic Thickness 0.8 cm 0.6 - 1.0 / 0.6 - 0.9 cm IVS Systolic Thickness 1.3 cm LVPW Diastolic Thickness 0.7 cm 0.6 - 1.0 / 0.6 - 0.9 cm LVPW Systolic Thickness 1.8 cm LVOT Diameter 2.0 cm LV Ejection Fraction 2D Teich 61.6 % LV Ejection Fraction MOD 2C 67.3 % LV Ejection Fraction 2C AL 65.1 % LA Diameter 2.2 cm LA Width 2.2 cm LA Height 4.3 cm RA Width 2.7 cm RA Height 3.5 cm Aorta at Sinotubular Diameter 2.8 cm IVC Diameter 2.0 cm M-MODE MV E Point Septal Separation 0.9 cm DOPPLER AV Peak Velocity 129.0 cm/s LVOT Peak Velocity 90.0 cm/s AV Area Cont Eq vti 2.1 cm squared AV Area Cont Eq pk 2.3 cm squared MV Peak Velocity 88.0 cm/s MV Area PHT 3.1 cm squared Mitral E to A Ratio 1.0 MV E' Velocity 43.5 cm/s Mitral E to MV E' Ratio 8.0 Mitral E to LV E' Lateral Ratio 7.7 Mitral E to LV E' Septal Ratio 8.2 TR Peak Velocity 187.0 cm/s TR Peak Gradient 14.0 mmHg Right Atrial Pressure 3.0 mmHg Pulmonary Artery Systolic Pressu 17.0 mmHg PV Peak Velocity 79.0 cm/s RV Acceleration Time 0.2 s RV Ejection Time 0.3 s RV AcT/ET 0.5 FINDINGS Left Ventricle Normal left ventricular size, systolic function and wall thickness, with no regional wall motion abnormalities. Left ventricular ejection fraction is estimated at 65 %. Normal diastolic function. Right Ventricle Normal right ventricular size and systolic function. Right ventricular systolic pressure 17 mmHg. Right Atrium Normal right atrial size. Left Atrium Normal left atrial size. Mitral Valve Structurally normal mitral valve. No mitral valve stenosis. Trace mitral valve regurgitation. Aortic Valve Structurally normal trileaflet aortic valve. No aortic valve stenosis. No aortic valve regurgitation. Tricuspid Valve Structurally normal tricuspid valve. No tricuspid valve stenosis. Trace tricuspid valve regurgitation. Pulmonic Valve Structurally normal pulmonic valve. No pulmonary valve stenosis. No significant pulmonary valve regurgitation. Pericardium No pericardial effusion. Aorta Normal size aortic root and proximal ascending aorta. IVC Normal IVC dimension with >50% respiratory change of the inferior vena cava. CONCLUSIONS 1. Normal left ventricular size, systolic function and wall thickness, with no regional wall motion abnormalities. Left ventricular ejection fraction is estimated at 65 %. Normal diastolic function. 2. Trace tricuspid valve regurgitation. 3. When compared to study dated 02/16/2021, left ventricular systolic function has improved. Bobbi Prescott MD (Electronically Signed) Final Date: 08 May 2022 14:45 S
== END 2022-05-07 14:11 | disposition home or self-care (01) ==
LOC: RAD 14:13
PROVIDERS: PCP Nurse Practitioner; Visit Provider Internal Medicine Cardiovascular Disease
DX: I25.10 Atherosclerotic heart disease of native coronary artery without angina pectoris (principal); R06.02 Shortness of breath
CPT/HCPCS: 93306

== ENCOUNTER → 2022-07-17 14:15 | Outpatient (BNVA) | payer MEDICARE, OTHER, SELFPAY | PROVIDERS: PCP Nurse Practitioner; Visit Provider Nurse Practitioner | DX: K13.70 Unspecified lesions of oral mucosa (principal) | CPT/HCPCS: 87070 ==

== ENCOUNTER 2023-02-24 11:51 | Outpatient (CLI) | payer MEDICARE, OTHER, SELFPAY ==
[2023-02-24 12:31] VITALS: BMI 22.1
--- NOTE | 2023-02-24 12:35 | ECG_ITS ---
[facility] Test Date: 2023-02-24 Pat Name: Prabhu Romeo Department: Room: Gender: Male Customer Technical Services Manager: Matteo De La Cruz : 1960 Requested By: Hernesto Virk Order Number: [id number] Kennedy MD: Lalo Cid M.D. Interpretive Statements NAME OF STUDY: TREADMILL STRESS TEST INDICATION: [Chest Pain, ] EXERCISE DATA: The patient was exercised by Amadeo protocol. Baseline heart rate was 86 beats per minute. Baseline blood pressure was 142/72 millimeters of mercury. Target heart rate was 134 beats per minute. Maximum heart rate achieved was 136, which was 101% of the target heart rate. Maximum blood pressure was 205/97 millimeters of mercury. Total exercise time was 12 minutes and 19 seconds. Maximum METs achieved was 10.3. The reason for ending the test was maximal effort achieved. The patient complained of shortness of breath during the stress test, which then resolved at the end of the test. ELECTROCARDIOGRAM: BASELINE: Showed sinus rhythm, normal axis, no significant ST-T changes at the baseline noted. [] EXERCISE: At the peak exercise level, [] No significant ST-T changes suggestive of ischemia noted. [] RECOVERY: During the recovery period, heart rate dropped appropriately. No significant ST-T changes in the recovery suggestive of ischemia noted. [] CONCLUSION: 1. Exercise capacity is good 2. Heart rate response was appropriate 3. Blood pressure response was appropriate 4. Symptoms not suggestive of ischemia. 5. Stress test was not suggestive of ischemia. Electronically Signed On 03-12-2023 11:51:43 CDT by Lalo Cid M.D. [id number]
[2023-02-24 13:11] VITALS: BP 152/66; PULSE 87
== END 2023-02-24 11:52 | disposition home or self-care (01) ==
LOC: CDL 11:52
PROVIDERS: PCP Nurse Practitioner Family; Visit Provider Nurse Practitioner Family
DX: R07.9 Chest pain, unspecified (principal)
CPT/HCPCS: 93017

== ENCOUNTER → 2023-07-14 15:24 | Outpatient (BNVA) | payer MEDICARE, OTHER, SELFPAY | PROVIDERS: PCP Nurse Practitioner Family; Visit Provider Nurse Practitioner Family | DX: E55.9 Vitamin D deficiency, unspecified (principal); I10 Essential (primary) hypertension; I50.9 Heart failure, unspecified; Z79.899 Other long term (current) drug therapy; Z13.6 Encounter for screening for cardiovascular disorders; Z12.5 Encounter for screening for malignant neoplasm of prostate | CPT/HCPCS: 80053; 80061; 81003; 82306; 83036; 84443; 85025; G0103 ==

== ENCOUNTER → 2024-03-25 11:10 | Outpatient (BNVA) | payer MEDICARE, OTHER, SELFPAY | PROVIDERS: PCP Nurse Practitioner Family; Visit Provider Nurse Practitioner Family | DX: J98.4 Other disorders of lung (principal); R07.9 Chest pain, unspecified; Z96.698 Presence of other orthopedic joint implants | CPT/HCPCS: 71046; 80053; 83880; 85025 ==

== ENCOUNTER → 2024-04-05 12:49 | Outpatient (BNVA) | payer MEDICARE, OTHER, SELFPAY | PROVIDERS: PCP Nurse Practitioner Family; Visit Provider Internal Medicine Cardiovascular Disease | DX: R07.9 Chest pain, unspecified (principal); I10 Essential (primary) hypertension; I11.0 Hypertensive heart disease with heart failure; R58 Hemorrhage, not elsewhere classified; Z95.5 Presence of coronary angioplasty implant and graft; I20.9 Angina pectoris, unspecified; F17.200 Nicotine dependence, unspecified, uncomplicated; E78.5 Hyperlipidemia, unspecified; K21.9 Gastro-esophageal reflux disease without esophagitis | CPT/HCPCS: 99214 ==

== ENCOUNTER 2024-04-19 07:25 | Outpatient (CLI) | payer MEDICARE, OTHER, SELFPAY ==
[2024-04-19] VITALS (16 sets, daily range): BP systolic 106–139; BP diastolic 68–82; PULSE 47–64; RESP 3–18; TEMP 36.9; O2SAT 94–98; BMI 22.7
--- NOTE | 2024-04-19 | XACV_ITS ---
Ht: 175 cm Wt: 70 kg BSA: 1.85 m2 Gender: Male : 1960 Any Known Allergies: Other Exam Priority: Routine Procedure(s): Procedure Description: Diagnostic procedure Procedure Description: Left Heart Catheterization Procedure Description: Left ventriculography Procedure Description: Coronary Angiography Diagnostic Cath Status: Elective Diagnostic Findings * No disease noted in the Left Main, Left Anterior Descending, Right, or Circumflex coronary arteries. * Coronary angiography shows right dominance. Conclusions 1. No disease noted in the Left Main, Left Anterior Descending, Right, or Circumflex coronary arteries. 2. Mild left ventricular systolic dysfunction. Ejection fraction of 45%. Recommendations * Continue current medical management and risk factor modification. Diagnostic RX Recommendation: medical therapy and/or counseling Ventriculography Ejection Fraction: 45.0 % Pressures Phase:Rest AO : / ( -3 ) @ 10:11:00 AM / ( 0 ) @ 10:12:00 AM / ( 0 ) @ 10:16:00 AM 115 / 71 ( 89 ) @ 10:16:00 AM 97 / 64 ( 79 ) @ 10:19:00 AM 92 / 61 ( 77 ) @ 10:20:00 AM 88 / 49 ( 34 ) @ 10:26:00 AM LV : 120 / 1 / 14 @ 10:25:00 AM 119 / -2 / 12 @ 10:26:00 AM Clinical Evaluation EBL: 5mL-10mL Procedural Details Procedure Consent Obtained. Admit Source: Out Patient. Pre-Procedure Time Out. Identified patient by full name and date of as verbalized by the patient/guarantor. Does the consent match the physician's order: Yes. Accurate & Complete Informed Consent: Yes. Inpatient/Outpatient History & Physical on Chart: Yes. If H&P is completed, is and addenduem needed: No; If yes, is the addendum complete: N/A. Visualize and Verify Site with Patient/Guarantor: N/A. Relevant Radiology Images available: N/A. The risks, benefits, and alternatives of sedation and/or procedure were discussed by physician. The patient agrees to continue. Procedure started. [facility] Clinical Fraility Score: 3: Managing Well. Senior Java Ui Developer Indications: Worsening Angina. Chest Pain Symptom Assessment: Typical Angina Symptoms. Cardiovascular Instability: No. Correct patient, site and procedure confirmed by cath team. Current diagnosis: Unstable angina. PERRLA. Strong, equal hand rent collector bilaterally. Lungs clear x 5 lobes. IV Site on Arrival: 20 gauge in the left anticubital. IV Fluids: 0.9% NaCl at KVO. 0 mL infused prior to slab inspector. Pre Procedural Pulses: bilateral posterior tibial was Doppled. Pre Procedural Pulses: bilateral dorsalis pedis was 2+. Pre Procedural Pulses: bilateral radial was 3+. Oxygen started at 3liters/min via nasal canula. right groin was prepped with chloroprep then draped in the usual sterile fashion. right radial was prepped with chloroprep then draped in the usual sterile fashion. Baseline sample Acquired. HR: 53 BPM. Physician notified. Physician arrived. Family updated by MD prior to the start of the procedure. Current Diagnosis : Unstable angina. Physician scrubbed in. Immediate Pre-Procedure Time Out. Correct Patient: Yes; Correct Procedure: Yes; Correct Site: Yes; Correct Patient Position: Yes; Correct Supplies: Yes; Dried Flammable Prep: Yes; Blood Products Available: N/A;. Lidocaine 1% infiltrated to the right radial. Venous access obtained. A 5 canadian Roly catheter in over wire. Multiple views taken of left coronary artery. Catheter redirected to the RCA. Multiple views taken of right coronary artery. Catheter removed over the exchange wire. A 5 canadian Angled Pig catheter in over wire. EDP Sample taken: LV 120/1,14; HR: 55 BPM; SpO2: 99%. LV gram performed in JC @ 10 mL/second for a total of 30 mL. Patient EF: Abnormal. EDP Sample taken: LV 119/-3,12; HR: 55 BPM; SpO2: 100%. Pullback taken: LV Off; AO Off; Mean: , Peak to Peak: , SEP: ; HR: 54 BPM; SpO2: 99%. [id number]. Medication waste: Lido- 18 ml Nitro- 49.8 mg Heparin- 3000 units Fentanyl-50 mcg. Total IV fluids: 25 mL. Physician review of films. Catheter removed over the exchange wire. Physician scrubbed out. A TR Band was successful obtaining hemostatsis at the Right Radial artery insertion site. TR band placed. Hemostasis obtained. Post Procedure: Pulses reassessed and unchanged. PERRLA. Strong, equal hand rent collector bilaterally. No VTE prophylaxis required. Fluoro: 2:05. Contrast type used: Omnipaque 300 mg/mL, 150 mL bottle. Post-op diagnosis: Patent stents; Non Obstructive CAD. Complications: None. Estimated blood loss: 5mL-10mL. Responsiveness - Normal response to verbal stimuli; alert and oriented, PERRLA. Airway - Unaffected, no intervention required; spontaneous ventilation. Circulation: W/N/L, pulses unchanged. Nausea/Vomiting: No. Procedure completed. Patient transferred by bed to CPRU. Vital chart was stopped. Access Site Site: Right Radial artery Sheath Size: 5 Fr Hemostasis Method: TR Band Hemostasis Success: Successful Procedure Medications Start: 10:03 AM Stop: 10:03 AM Medication: Versed Amount: 1 mg Route: I.V. Start: 10:03 AM Stop: 10:03 AM Medication: Fentanyl Amount: 50 mcg Route: I.V. Start: 10:12 AM Stop: 10:12 AM Medication: Versed Amount: 1 mg Route: I.V. Start: 10:15 AM Stop: 10:15 AM Medication: Nitrogylcerin Amount: 200 mcg Route: I.A. Start: 10:15 AM Stop: 10:15 AM Medication: Heparin Amount: 5000 units Route: I.V. I, the attending physician, have reviewed and verified all procedure medications. Yes, all medications given per verbal order History/Risk Factors Hypertension: Yes Dyslipidemia: No Peripheral Arterial Disease (PAD): No Myocardial Infarction (PA): No Obesity: No Renal Disease: No Tobacco Use: Current/Recent(w/in 1 year) Prior Interventions PCI: Yes CABG: No Valve Surgery: No Date of PCI: 02/15/2021 Report Signatures Finalized by Eliza Reardon MD on 04/30/2024 08:47 PM
[2024-04-19 07:56] LABS: Basophils % 0.3 %; Eosinophils # 0.2 10^3/uL (0.0-0.8); Eosinophils % 1.9 %; Hematocrit 46.9 % (37-53); Lymphocytes # 3.1 10^3/uL (0.8-4.8); Lymphocytes % 30.1 %; Mean Platelet Volume 9.1 fL (7.4-10.4); Monocytes # 0.7 10^3/uL (0.2-0.9); Monocytes % 6.4 %; Neutrophils # 6.12 10^3/uL (1.8-7.7); Neutrophils % 59.2 %; Nucleated Red Blood Cells % 0 %; Platelet Count 334 10^3/cmm (157-399); Red Blood Count 4.69 10^6/uL (3.85-5.65); Red Cell Distribution Width 14.6 % (12.1-15.1); White Blood Count 10.34 10^3/uL (3.29-11.43)
[2024-04-19 08:09] LABS: Anion Gap 12.4 (5-19); Blood Urea Nitrogen 17 mg/dL (8-23); Carbon Dioxide 29 mmol/L (22-29); Chloride 101 mmol/L (98-107); Glomerular Filtration Rate 75.2 mL/min (90-130); Glucose 90 mg/dL (65-115); Osmolality Calculated 287 mOsm/kg (285-295); Potassium 4.4 mmol/L (3.5-5.1); Sodium 138 mmol/L (136-145)
[2024-04-19] MEDS: aspirin 325 mg Tablet PO (08:20)
[2024-04-19] MEDS: diphenhydrAMINE 50 mg Capsule PO (08:20)
--- NOTE | 2024-04-19 09:22 | W.PM.OPSUD ---
Surgery/Procedure H&P Update DATE OF PROCEDURE: April 19, 2024 DATE H&P PERFORMED: 04/19/24 H&P UPDATE INFORMATION: I have reviewed H&P completed within last 30 days, I have examined patient prior to procedure and No changes to prior documentation PREOP DIAGNOSIS: Unstable angina PLANNED PROCEDURE: Operation Date: 04/19/24 08:30 Proposed Procedures p Cardiac Catheterization - C w/wo LV & Coros(Left) - Eliza Reardon MD PATIENT REASSESSED PRIOR TO SEDATION, WITH NO CHANGE NOTED: Yes PHYSICAL EXAM: alert, oriented x 3, clear to auscultation bilaterally and regular rate & rhythm AIRWAY EVAL/ANESTHESIA PLAN: ASA II, Risks, benefits & alternatives of sedation and/or procedure discussed and Patient agrees to continue as planned
--- NOTE | 2024-04-19 10:46 | PC.NURSE ---
Received to room post procedure. TRB in place to R radial access site, no bleeding or hematoma noted. Alert and oriented, denies pain. Call light in reach.
--- NOTE | 2024-04-19 11:45 | PC.NURSE ---
TRB air released 1ml air released from TRB at this time per protocol. No s/s of bleeding or hematoma noted at puncture site. Denies pain. Will monitor.
--- NOTE | 2024-04-19 12:45 | PC.NURSE ---
Addendum entered by Karol Sweet RN 04/19/24 13:39: TRB deflated at 12:45 per protocol. No hematoma or bleeding noted at site. Denies pain. Original Note: TRB Deflated
--- NOTE | 2024-04-19 14:08 | PC.NURSE ---
Discharge instructions Discharge instructions given to pt and at this time, verbalized understanding. Coban and 2x2 dressing applied to R radial access site, small bruise noted to puncture site, no swelling or s/s of bleeding noted. Denies pain. Pt getting dressed with assistance from .
== END 2024-04-19 07:26 | disposition home or self-care (01) ==
PROVIDERS: PCP Nurse Practitioner Family; Visit Provider Internal Medicine Cardiovascular Disease
DX: R07.9 Chest pain, unspecified (principal); I25.2 Old myocardial infarction; K21.00 Gastro-esophageal reflux disease with esophagitis, without bleeding; I11.0 Hypertensive heart disease with heart failure; I50.9 Heart failure, unspecified; I25.10 Atherosclerotic heart disease of native coronary artery without angina pectoris; G47.33 Obstructive sleep apnea (adult) (pediatric); M06.9 Rheumatoid arthritis, unspecified; I10 Essential (primary) hypertension
CPT/HCPCS: 36415; 80048; 85025; 93458; 96365; 96374; 99152; C1769; C1887; C1894; J1644; J2250; J3010; J3490; J7030; Q0163; Q9967

== ENCOUNTER → 2024-04-28 13:00 | Outpatient (BNVA) | payer MEDICARE, OTHER, SELFPAY | PROVIDERS: PCP Nurse Practitioner Family; Visit Provider Nurse Practitioner Family | DX: I25.10 Atherosclerotic heart disease of native coronary artery without angina pectoris (principal); F17.200 Nicotine dependence, unspecified, uncomplicated; I11.0 Hypertensive heart disease with heart failure; I50.9 Heart failure, unspecified | CPT/HCPCS: 36415; 80048; 99214 ==

== ENCOUNTER → 2024-09-29 13:43 | Outpatient (BNVA) | payer MEDICARE, OTHER, SELFPAY | PROVIDERS: PCP Nurse Practitioner Family; Visit Provider Orthopaedic Surgery | DX: M54.9 Dorsalgia, unspecified (principal); G89.29 Other chronic pain | CPT/HCPCS: 72072; 72100; 99203 ==

== ENCOUNTER → 2024-10-04 14:39 | Outpatient (BNVA) | payer MEDICARE, OTHER, SELFPAY | PROVIDERS: PCP Nurse Practitioner Family; Visit Provider Internal Medicine Cardiovascular Disease | DX: I25.10 Atherosclerotic heart disease of native coronary artery without angina pectoris (principal); I11.0 Hypertensive heart disease with heart failure; I50.22 Chronic systolic (congestive) heart failure; E78.5 Hyperlipidemia, unspecified; M54.30 Sciatica, unspecified side; K29.60 Other gastritis without bleeding; Z79.01 Long term (current) use of anticoagulants; Z95.5 Presence of coronary angioplasty implant and graft; F17.200 Nicotine dependence, unspecified, uncomplicated | CPT/HCPCS: 99214 ==

== ENCOUNTER 2024-10-05 12:57 | Outpatient (CLI) | payer MEDICARE, OTHER, SELFPAY ==
--- NOTE | 2024-10-05 13:00 | MR_ITS ---
WS: [id number] MRI LUMBAR SPINE NONCONTRAST HISTORY: LUMBAR PAIN COMPARISON: Radiograph 09/29/2024, prior MRI lumbar spine 03/25/2012. TECHNIQUE: Sagittal and axial multisequence imaging is submitted. Thoracolumbar scoliosis. Mid to lower thoracic spine posterior fusion hardware. RIGHT rotary scoliosis of the lumbar spine. Disc spaces are narrowed and mildly desiccated. Variable signal heterogeneity within the vertebral bodies. With no history of malignancy this is probably related to osteopenia. Marrow edema in the endplates of L1, L2 and L3. No acute fractures. Conus terminates normally at L1. L1-L2: Mild disc bulging with a shallow LEFT paracentral disc protrusion and facet arthritis. Mild foraminal narrowing. No high-grade stenosis. L2-L3: Diffuse osteophytic ridging with annular disc bulging, ligamentum flavum and facet arthritis. Disc encroachment upon the subarticular recesses, LEFT greater than RIGHT. LEFT foraminal disc protrusion. Mild LEFT foraminal stenosis. Mild bilateral subarticular recess stenosis. L3-L4: Diffuse annular disc bulge with a central disc protrusion and bilateral foraminal disc protrusions. Circumferential osteophytosis. Ligamentum flavum and facet arthritis. Mild central with moderate bilateral subarticular recess and foraminal stenosis. There is disc contacting the L3 and L4 nerve roots. L4-L5: Diffuse annular disc bulging asymmetric to the RIGHT. Moderate to large RIGHT paracentral disc protrusion extends into the subarticular recess and into the foramen. Complete effacement of fat in the RIGHT foramen. There is significant disc contact on the traversing L5 nerve roots, greater on the RIGHT. Moderate central with subarticular recess and LEFT foraminal stenosis. Severe RIGHT foraminal stenosis. Significant disc contact on the right-sided nerve roots, L4 and L5. L5-S1: Annular disc bulging, facet arthritis and shallow RIGHT foraminal disc protrusion. Moderate RIGHT foraminal stenosis. Paravertebral soft tissues are negative. MR/MR lumbar spine wo con* [id number] IMPRESSION: 1. Moderate RIGHT rotary scoliosis of the lumbar spine with degenerative disc disease and facet disease. 2. Multilevel areas of stenosis throughout the lumbar spine due to combination of disc, osteophyte and facet arthritis. 3. L4-5: Moderate to large RIGHT paracentral disc protrusion extending into th e subarticular recess and RIGHT foramen. There is significant disc contact on t he RIGHT L4 and L5 nerve roots. 4. L4-5: Moderate central with bilateral subarticular recess and LEFT foramina l stenosis. Severe stenosis on the RIGHT. 5. L5-S1: Moderate RIGHT foraminal stenosis due to shallow disc protrusion. 6. L3-4: Moderate bilateral subarticular recess and foraminal stenosis. Disc c ontacts the L3 and L4 nerve roots. 7. L2-3: Disc encroachment upon the subarticular recesses, LEFT greater than R IGHT with a LEFT foraminal disc protrusion. 8. L1-2: Mild foraminal stenosis.
== END 2024-10-05 12:58 | disposition home or self-care (01) ==
LOC: RAD 12:59
PROVIDERS: PCP Nurse Practitioner Family; Visit Provider Orthopaedic Surgery
DX: M51.362 Other intervertebral disc degeneration, lumbar region with discogenic back pain and lower extremity pain (principal); M79.604 Pain in right leg; M41.86 Other forms of scoliosis, lumbar region; M47.896 Other spondylosis, lumbar region; M25.78 Osteophyte, vertebrae; M51.26 Other intervertebral disc displacement, lumbar region; M48.061 Spinal stenosis, lumbar region without neurogenic claudication; M48.07 Spinal stenosis, lumbosacral region; M41.85 Other forms of scoliosis, thoracolumbar region; Z98.1 Arthrodesis status; R93.7 Abnormal findings on diagnostic imaging of other parts of musculoskeletal system; M24.28 Disorder of ligament, vertebrae; M51.372 Other intervertebral disc degeneration, lumbosacral region with discogenic back pain and lower extremity pain; M47.897 Other spondylosis, lumbosacral region
CPT/HCPCS: 72148

== ENCOUNTER → 2024-10-13 14:19 | Outpatient (BNVA) | payer MEDICARE, OTHER, SELFPAY | PROVIDERS: PCP Nurse Practitioner Family; Visit Provider Orthopaedic Surgery | DX: Z09 Encounter for follow-up examination after completed treatment for conditions other than malignant neoplasm (principal) | CPT/HCPCS: 99214 ==

== ENCOUNTER → 2024-10-21 10:39 | Outpatient (BNVA) | payer MEDICARE, OTHER, SELFPAY | PROVIDERS: PCP Nurse Practitioner Family; Visit Provider Family Medicine | DX: Z01.818 Encounter for other preprocedural examination (principal); R94.31 Abnormal electrocardiogram [ECG] [EKG] | CPT/HCPCS: 80053; 85007; 85027; 93005 ==

== ENCOUNTER 2024-11-02 08:14 | Day surgery (SDC) | payer MEDICARE, OTHER, SELFPAY ==
[2024-11-02] VITALS (10 sets, daily range): BP systolic 121–154; BP diastolic 70–89; PULSE 55–63; RESP 14–18; TEMP 36.1–36.3; O2SAT 98–100; BMI 22.7
--- NOTE | 2024-11-02 08:40 | W.PM.OPSUD ---
Surgery/Procedure H&P Update DATE OF PROCEDURE: November 02, 2024 DATE H&P PERFORMED: 10/13/24 H&P UPDATE INFORMATION: I have reviewed H&P completed within last 30 days, I have examined patient prior to procedure and No changes to prior documentation PREOP DIAGNOSIS: Right L4-5 radiculopathy PLANNED PROCEDURE: Operation Date: 11/02/24 09:50 Proposed Procedures p Laminotomy with decompression and excision of herniated disc(Not Applicable) - Simone Paulino DO
[2024-11-02] MEDS: sodium chloride 0.9% 1,000 ML 30 ML IV (08:47)
--- NOTE | 2024-11-02 09:38 | ANES.PREANE2 ---
Pre-Anesthetic Assessment Height/Weight: Height 5 ft 9 in Weight 154 lb Temp Pulse Resp BP Pulse Ox O2 Del Method 97.4 F L 58 L 18 154/89 99 Room Air 11/02/24 08:36 11/02/24 08:36 11/02/24 08:36 11/02/24 08:36 11/02/24 08:36 11/02/24 08:36 Preop Diagnosis: Right L4-5 radiculopathy Operation Date: 11/02/24 09:50 Proposed Procedures p Laminotomy with decompression and excision of herniated disc(Not Applicable) - Simone Paulino, DO Was Beta Heather taken within 24 hours: Yes Was Clonidine taken within 24 hours: N/A Last intake: Intake Last Liquid Date 11/01/24 Last Liquid Time 21:30 Last Solid Date 11/01/24 Last Solid Time 21:30 Social Tobacco and No alcohol Exam alert, oriented x 3 and regular rate & rhythm Airway Submandibular: within normal limits Mallampati: Class III Comments: Comments: Edentulous Anesthetic Plan ASA status: 3 Anesthesia: General Other: No prior issues with anesthesia NPO since yesterday evening CAD history, s/p stent 3 years ago. On chronic Plavix. Taken 1 week ago Hypertension on metoprolol GERD on Protonix COPD, smokes marijuana and nicotine MARIAN no treatment Patient states that his heart rate runs low at baseline, preop HR 58 Recent labs from 10/21/2024 reviewed acceptable for procedure today Plan for GETA Medications/Allergies Home Medications ?Medication ?Instructions ?Recorded ?Confirmed ?Last Taken ?Type cetirizine 10 mg tablet 10 mg PO DAILY PRN allergy symptoms 02/25/21 11/02/24 04/18/24 22:00 History albuterol sulfate 90 mcg/actuation 1 inh inhalation Q6H PRN shortness 03/25/24 11/02/24 04/18/24 22:00 Rx aerosol inhaler of breath or wheezing #6.7 grams nitroglycerin 0.4 mg sublingual 0.4 mg sublingual Q5M PRN chest 03/25/24 11/02/24 Unknown Rx tablet (Nitrostat) pain #25 tabs cholecalciferol (vitamin D3) 125 125 mcg PO DAILY 04/05/24 11/01/24 10/26/24 History mcg (5,000 unit) capsule metoprolol succinate 25 mg 12.5 mg (1/2 x 25 mg) PO DAILY #90 04/28/24 11/01/24 11/01/24 Rx tablet,extended release 24 hr tabs acetaminophen 500 mg tablet 1,000 mg PO TID PRN Pain, Mild 09/29/24 11/01/24 11/01/24 History (Tylenol Extra Strength) aspirin 81 mg tablet 81 mg PO DAILY #90 tabs 10/04/24 11/01/24 10/26/24 Rx isosorbide dinitrate 5 mg tablet 5 mg PO QPM 10/04/24 11/01/24 11/01/24 History hydrocodone 5 mg-acetaminophen 325 1 tab PO TID PRN pain 7 days #21 10/20/24 11/01/24 11/01/24 Rx mg tablet tabs pantoprazole 40 mg tablet,delayed 40 mg PO QPM 11/01/24 11/01/24 11/01/24 History release Allergies Allergy/AdvReac Type Severity Reaction Status Date / Time penicillin G Allergy unknown Verified 11/01/24 11:04 pseudoephedrine (From Allergy ALGY-Difficulty Verified 11/01/24 11:04 Sudafed) Breathing Current Medications Generic Name Dose Route Start Last Admin Trade Name Freq PRN Reason Stop Dose Admin Sodium Chloride 1,000 mls @ 30 mls/hr 11/02/24 08:30 11/02/24 08:47 Sodium Chloride 0.9% IV 11/03/24 08:29 30 mls/hr .Q24H DARVIN Administration PFSH Anesthesia Medical History Enrolled in chronic care management Reflux gastritis CHF (congestive heart failure), NYHA class III HTN (hypertension) Otitis media, right CAD (coronary artery disease) Trauma of ear canal Medication management Prostate cancer screening Vitamin D deficiency DDD (degenerative disc disease), lumbar DDD (degenerative disc disease), thoracic DDD (degenerative disc disease), cervical Rheumatoid arthritis MARIAN (obstructive sleep apnea) Chronic back pain Environmental and seasonal allergies Back pain COPD (chronic obstructive pulmonary disease) Surgical History S/P drug eluting coronary stent placement S/P bilateral inguinal [place] [facility] [place] Bilateral - 2018 [place] Status post thoracic spinal fusion 7 fractured vertabra after falling off roof in 2009 Family History Other Cancer Social History Smoking and tobacco/nicotine status: current every day tobacco/nicotine user Alcohol intake: former Substance/Drug Use: current Data Anesthesia Cardiac Studies: Echocardiogram 05/07/22
[2024-11-02] MEDS: clindamycin 600 MG/50 ML PREMIX IV (09:52)
[2024-11-02] MEDS: lidocaine-epi 1% 20 mL INJ INJECTION (10:13)
--- NOTE | 2024-11-02 10:51 | PM.OP ---
Operative Report Date of procedure: November 02, 2024 Pre-op diagnosis: Right L4/5 disc herniation with radiculopathy Post-op diagnosis: same Procedure done: Right L4-5 laminectomy with partial facetectomy and discectomy Surgeon: Simone Paulino DO Estimated blood loss (mL): 5 Procedure: Right L4-5 laminectomy with partial facetectomy and discectomy Patient is brought to the operative suite. After undergoing anesthesia they are placed in the prone position. All areas of impingement are well padded. Patient is then prepped and draped in the normal sterile fashion. A skin incision is made over the L4/5 level. This is confirmed under c-arm guidance. A series of dilators are passed and the tubular retractor is docked on the L4 lamina. A bovie is used to clear the soft tissue off the lamina and the L 4/5 facet joint. A high speed thom is then used to perform the laminectomy and take down the medial aspect of the L 4/5 facet joint. A kerrison rongeure was then used to take down the remaining lamina and smooth the edge of the laminectomy up to the point where the ligamentum flavum attaches. Attention was then brought to the medial aspect of the facet joint. The remaining medial aspect of the superior and inferior aspect of the facet joint were taken down with the kerrison from the pedicle of L4 to L 5. The facet joint had significant hypertrophy. Attention was then brought to the Ligamentum Flavum. The ligament was taken down from the lamina of L4 to L5 and out medially to the remaining facet joint. The ligament was thick. The dura was then exposed. The dura was in good repair. The L4 nerve is retracted disc is identified curved curette was used to tease it out. Micropituitary was used to remove the disc. The L4 nerve was then traced with a curette out the L4/5 foramen and found to be adequately decompressed. The L5 nerve was traced with a curette around the L5 pedicle. The lateral recess was opened with a kerrison helping to further decompress the L5 nerve. Wound is then irrigated copiously with saline and surgiflo is used to stop any bleeding. The tubular retractor is removed and the wound is closed with vicryl and monocryl suture. Glue is then used to protect the wound. A sterile dressing is then placed. Patient was then placed in the supine position and transferred to the PACU in stable condition.
[2024-11-02] MEDS: HYDROcodone-acetaminophen 5-325 mg Tablet 1 TAB PO (11:40)
--- NOTE | 2024-11-02 12:05 | ANE.PACU2 ---
Inpatient post-anesthesia follow up: Airway intact: Yes Vital signs: Temperature 97.3 F Pulse Rate 55 Respiratory Rate 18 Blood Pressure 152/83 Pulse Oximetry 100 Oxygen Delivery Me thod Room Air Oxygen Flow Rate 6 Fraction of Inspir ed Oxygen Hydration adequate: Yes Nausea and vomiting: No Pain level: 1 Mental status: Baseline
--- NOTE | 2024-11-02 14:50 | XR_ITS ---
WS: [id number] Lumbar spine, C-arm fluoroscopy views, 11/02/2024 Clinical Data: or pic, decompression Comparison: Lumbar spine, 09/29/2024 Findings: Dr. Paulino performed a lumbar decompression. XR/XR lumbar spine 1V [id number] Impression: Lumbar decompression.
== END 2024-11-02 12:05 | disposition home or self-care (01) ==
PROVIDERS: PCP Nurse Practitioner Family; Visit Provider Orthopaedic Surgery
PROC: (CPT 63005; principal; 2024-11-02 09:30)
DX: M51.16 Intervertebral disc disorders with radiculopathy, lumbar region (principal); Z86.79 Personal history of other diseases of the circulatory system; Z95.5 Presence of coronary angioplasty implant and graft; Z79.02 Long term (current) use of antithrombotics/antiplatelets; K21.9 Gastro-esophageal reflux disease without esophagitis; F44.9 Dissociative and conversion disorder, unspecified; G47.33 Obstructive sleep apnea (adult) (pediatric); Z79.82 Long term (current) use of aspirin; F17.200 Nicotine dependence, unspecified, uncomplicated; I11.0 Hypertensive heart disease with heart failure; I50.9 Heart failure, unspecified; M06.9 Rheumatoid arthritis, unspecified; M43.24 Fusion of spine, thoracic region
CPT/HCPCS: 63047; 72020; 76000; J1100; J2250; J2405; J2704; J3010; J3490; J7030; J9999

== ENCOUNTER → 2024-11-15 14:09 | Outpatient (BNVA) | payer MEDICARE, OTHER, SELFPAY | PROVIDERS: PCP Nurse Practitioner Family; Visit Provider Orthopaedic Surgery | DX: Z98.890 Other specified postprocedural states (principal) | CPT/HCPCS: 99024 ==

== ENCOUNTER → 2024-12-13 13:12 | Outpatient (BNVA) | payer MEDICARE, OTHER, SELFPAY | PROVIDERS: PCP Nurse Practitioner Family; Visit Provider Orthopaedic Surgery | DX: Z98.890 Other specified postprocedural states (principal) | CPT/HCPCS: 99024 ==

== ENCOUNTER → 2025-01-24 13:09 | Outpatient (BNVA) | payer MEDICARE, OTHER, SELFPAY | PROVIDERS: PCP Nurse Practitioner Family; Visit Provider Orthopaedic Surgery | DX: Z98.890 Other specified postprocedural states (principal) | CPT/HCPCS: 99024 ==